=== PATIENT | female | born 1980 | race African-American/Black ===

== ENCOUNTER 2019-11-22 08:14 | Emergency (ER) | payer BC, OTHER ==
[~2019-11-22] VITALS: Ht 162.6 cm; Wt 74.4 kg
[2019-11-22] MEDS: METOCLOPRAMIDE HCL 10 MG/2 ML VIAL IV ONE (08:30)
[2019-11-22] MEDS: IV NORMAL SALINE 1000 ML BAG IV ONE (08:56)
[2019-11-22] MEDS ORDERED: METOCLOPRAMIDE HCL 10 MG/2 ML VIAL ONE (09:01)
[2019-11-22] MEDS: diphenhydrAMINE 50 MG/1 ML VIAL IV ONE (09:01)
[2019-11-22] MEDS ORDERED: diphenhydrAMINE 50 MG/1 ML VIAL ONE (09:01)
[2019-11-22] MEDS ORDERED: MECLIZINE HCL 25 MG TABLET ONE (09:01)
[2019-11-22] MEDS: MECLIZINE HCL 25 MG TABLET PO ONE (09:01)
[2019-11-22 09:03] LABS: BASOPHILS # (AUTO) 0.1 K/uL (0.0-8.0); BASOPHILS % (AUTO) 1.2 % (0.0-2.0); EOSINOPHILS # (AUTO) 0.2 K/uL (0.0-0.7); EOSINOPHILS % (AUTO) 3.7 % (0.0-7.0); HEMOGLOBIN 13.2 g/dL (10.9-14.3); MEAN CORPUSCULAR HEMOGLOBIN 27.7 uug (24.7-32.8); MEAN CORPUSCULAR HGB CONC 35 g/dL (32.3-35.6); MEAN CORPUSCULAR VOLUME 79.9 fL (75.5-95.3); MONOCYTES # (AUTO) 0.5 K/uL (2.0-10.0); MONOCYTES % (AUTO) 10.2 % (0.0-11.0); NEUTROPHILS # (AUTO) 2.1 K/uL (1.8-8.9); NEUTROPHILS % (AUTO) 42.9 % (38.5-71.5); PLATELET COUNT (AUTO) 360 K/uL (179-408); RED BLOOD CELL COUNT(AUTO) 4.76 MIL/uL (3.63-4.92); WHITE BLOOD COUNT (AUTO) 4.8 K/uL (3.8-11.8)
--- NOTE | 2019-11-22 09:13 | NUR ---
CALLED [facility] TO TRANSFER THE PT TO [facility] FOR CT. ETA 1130, TRIP NUMBER [id number]
[2019-11-22 09:16] LABS: CREATININE 0.8 mg/dL (0.6-1.3); POTASSIUM 3.8 mmol/L (3.5-5.1)
[2019-11-22 09:19] LABS: BILIRUBIN,DIRECT 0.2 mg/dL (0.0-0.2); BILIRUBIN,TOTAL 0.5 mg/dL (0.2-1.0); PHOSPHOROUS 2.9 mg/dL (2.5-4.9); TOTAL PROTEIN, SERUM 7.7 g/dL (6.4-8.2)
--- NOTE | 2019-11-22 09:59 | NUR ---
Pt resting with NAD noted at this time.
[2019-11-22 11:00] LABS: *BILIRUBIN,URIN NEGATIVE (NEGATIVE); *BLOOD, URINE NEGATIVE (NEGATIVE); *CLARITY,URINE SLIGHTLY CLOUDY (CLEAR); *COLOR,URINE YELLOW (YELLOW); *KETONES,URINE NEGATIVE (NEGATIVE); *URINE HCG, QUAL NEG (NEGATIVE); *UROBILINOGEN,URINE 0.2 E.U./dl (NORMAL); LEUKOCYTE ESTERASE ,URINE NEGATIVE (NEGATIVE); NITRITE, URINE NEGATIVE (NEGATIVE); UGLUCOSE NEGATIVE (NEGATIVE)
--- NOTE | 2019-11-22 11:26 | NUR ---
[facility] at bedside to take the pt to [facility] for ct scan
--- NOTE | 2019-11-22 11:33 | NUR ---
Pt to [facility] [place] [facility], NAD noted.
[2019-11-22 12:11] LABS: *MONOTEST NEGATIVE (NEGATIVE)
[2019-11-22 12:33] LABS: BACTERIA,URINE FEW /HPF (NONE SEEN); RBC,URINE NONE SEEN /HPF (0-3); SQUAMOUS EPITHELIAL CELL,UR FEW /HPF (NONE SEEN); WBC,URINE 0-3 /HPF (0-3)
--- NOTE | 2019-11-22 12:35 | NUR ---
PT BACK FROM [facility].
--- NOTE | 2019-11-22 13:51 | NUR ---
Pt resting with NAD noted, pending CT results.
--- NOTE | 2019-11-22 13:57 | NUR ---
IMAGES NOT SEEN ON [facility], BUT ARE AVAILABLE ON [facility]. MELVA FROM [facility] TOLD ME THAT IS LOOKING AT THE IMAGES NOW, SO PRETTY SOON WE WILL HAVE A READING.
--- NOTE | 2019-11-22 14:20 | NUR ---
IV removed. Catheter intact and site benign. Pressure and 4x4 gauze applied to site. No bleeding noted.
--- NOTE | 2019-11-22 14:25 | NUR ---
Patient discharged to home in stable condition. Written and verbal after care instructions given. Patient verbalizes understanding of instructions. Stressed follow up or return to ER for worsening s/s.
== END 2019-11-22 14:27 | disposition home or self-care (01) ==
LOC: ER 08:14
DX: R55 Syncope and collapse (principal); R42 Dizziness and giddiness
CPT/HCPCS: 36415; 70450; 71045; 80048; 80076; 81001; 83735; 84100; 84484; 84702; 84703; 85025; 86308; 86403; 87070; 87426; 93005; 96361; 96374; 99285; J1200; 70030-TC; A4663; J2765; J7030; J8597

== ENCOUNTER 2020-04-02 16:28 | Outpatient (CLI) | payer BC, OTHER ==
[2020-04-02 17:25] LABS: BASOPHILS # (AUTO) 0.1 K/uL (0.0-8.0); BASOPHILS % (AUTO) 1.3 % (0.0-2.0); EOSINOPHILS # (AUTO) 0.2 K/uL (0.0-0.7); EOSINOPHILS % (AUTO) 3.1 % (0.0-7.0); HEMATOCRIT 36.6 % (31.2-41.9); HEMOGLOBIN 12.7 g/dL (10.9-14.3); LYMPHOCYTES % (AUTO) 33.3 % (20.5-51.5); MEAN CORPUSCULAR HEMOGLOBIN 27.5 uug (24.7-32.8); MEAN CORPUSCULAR HGB CONC 35 g/dL (32.3-35.6); MEAN CORPUSCULAR VOLUME 79.2 fL (75.5-95.3); MONOCYTES # (AUTO) 0.5 K/uL (2.0-10.0); MONOCYTES % (AUTO) 8.2 % (0.0-11.0); NEUTROPHILS # (AUTO) 3.3 K/uL (1.8-8.9); NEUTROPHILS % (AUTO) 54.1 % (38.5-71.5); PLATELET COUNT (AUTO) 334 K/uL (179-408); RED BLOOD CELL COUNT(AUTO) 4.61 MIL/uL (3.63-4.92); WHITE BLOOD COUNT (AUTO) 6.1 K/uL (3.8-11.8)
[2020-04-02 17:39] LABS: BILIRUBIN,TOTAL 0.4 mg/dL (0.2-1.0); CREATININE 0.8 mg/dL (0.6-1.3); POTASSIUM 4.1 mmol/L (3.5-5.1); TOTAL PROTEIN, SERUM 7.7 g/dL (6.4-8.2)
[2020-04-02 17:47] LABS: THYROID STIMULATING HORMONE 0.317 mIU/mL (0.358-3.740)
[2020-04-02 20:09] LABS: *BILIRUBIN,URIN NEGATIVE (NEGATIVE); *BLOOD, URINE NEGATIVE (NEGATIVE); *CLARITY,URINE CLEAR (CLEAR); *COLOR,URINE YELLOW (YELLOW); *KETONES,URINE NEGATIVE (NEGATIVE); LEUKOCYTE ESTERASE ,URINE TRACE (NEGATIVE); NITRITE, URINE NEGATIVE (NEGATIVE); UGLUCOSE NEGATIVE (NEGATIVE)
[2020-04-02 21:52] LABS: BACTERIA,URINE NONE SEEN /HPF (NONE SEEN); RBC,URINE 0-3 /HPF (0-3); WBC,URINE 0-3 /HPF (0-3)
[2020-04-02 21:53] LABS: MUCUS,URINE FEW /LPF (0-FEW); SQUAMOUS EPITHELIAL CELL,UR FEW /HPF (NONE SEEN); URINE AMORPHOUS PHOSPHATES FEW /HPF
== END 2020-04-02 23:59 | disposition home or self-care (01) ==
LOC: LAB 16:28
PROVIDERS: ATTEND Legal Medicine
DX: E03.9 Hypothyroidism, unspecified (principal); D64.9 Anemia, unspecified; E55.9 Vitamin D deficiency, unspecified; Z00.00 Encounter for general adult medical examination without abnormal findings
CPT/HCPCS: 82306; 82746; 83550; 84443; 85025; 86803; 87806

== ENCOUNTER 2020-08-13 07:42 | Outpatient (CLI) | payer BC, MEDICAID, OTHER ==
[2020-08-13 08:25] LABS: *BILIRUBIN,URIN NEGATIVE (NEGATIVE); *BLOOD, URINE NEGATIVE (NEGATIVE); *CLARITY,URINE CLEAR (CLEAR); *COLOR,URINE YELLOW (YELLOW); *KETONES,URINE NEGATIVE (NEGATIVE); *UROBILINOGEN,URINE 0.2 E.U./dl (NORMAL); LEUKOCYTE ESTERASE ,URINE NEGATIVE (NEGATIVE); NITRITE, URINE NEGATIVE (NEGATIVE); PH,URINE 5.5 (5.0-8.0); UGLUCOSE NEGATIVE (NEGATIVE)
[2020-08-13 09:26] LABS: HEMATOCRIT 36.2 % (31.2-41.9); MEAN CORPUSCULAR HEMOGLOBIN 27.9 uug (24.7-32.8); MEAN CORPUSCULAR VOLUME 81.2 fL (75.5-95.3); PLATELET COUNT (AUTO) 357 K/uL (179-408)
[2020-08-13 09:38] LABS: BILIRUBIN,TOTAL 0.5 mg/dL (0.2-1.0); CREATININE 0.7 mg/dL (0.6-1.3); POTASSIUM 3.8 mmol/L (3.5-5.1); TOTAL PROTEIN, SERUM 7.3 g/dL (6.4-8.2)
== END 2020-08-13 23:59 | disposition home or self-care (01) ==
LOC: LAB 07:42
PROVIDERS: ATTEND Legal Medicine
DX: Z01.818 Encounter for other preprocedural examination (principal)
CPT/HCPCS: 36415; 85025; 85730

== ENCOUNTER 2020-08-14 06:31 | Outpatient (CLI) | payer BC, MEDICAID, OTHER | END 2020-08-14 23:59 | disposition home or self-care (01) | LOC: LAB 06:31 | PROVIDERS: ATTEND Surgery | DX: Z01.812 Encounter for preprocedural laboratory examination (principal); Z20.822 Contact with and (suspected) exposure to COVID-19; K64.9 Unspecified hemorrhoids ==

== ENCOUNTER 2020-08-16 07:39 | Day surgery (SDC) | payer BC, MEDICAID, OTHER ==
[~2020-08-16 07:39] MED LIST: CEFAZOLIN 2 G in IV DEXTROSE 5% 100 ML IV ONE
[2020-08-16] MEDS ORDERED: IBUPROFEN 800 MG TABLET PO ONE (07:40)
[2020-08-16] MEDS ORDERED: BUPIVACAINE PF 0.5% 30 ML VIAL ONE (09:47)
[2020-08-16] MEDS ORDERED: LIDOCAINE 1%-EPI 1:100,000 20 ML VIAL ONE (09:47)
[2020-08-16] MEDS ORDERED: THROMBIN (BOVINE) 5,000 UNITS VIAL ONE (09:47)
[2020-08-16] MEDS ORDERED: FENTANYL CITRATE 100 MCG/2 ML AMPUL ONE (15:22)
[2020-08-16] MEDS ORDERED: KETOROLAC TROMETHAMINE 30 MG INJ ONE (16:02)
== END 2020-08-16 17:00 | disposition home or self-care (01) ==
LOC: DS 07:39
PROVIDERS: ATTEND Surgery
DX: K64.4 Residual hemorrhoidal skin tags (principal); Z79.899 Other long term (current) drug therapy; Z98.890 Other specified postprocedural states; Z88.5 Allergy status to narcotic agent; Z88.8 Allergy status to other drugs, medicaments and biological substances; Z72.89 Other problems related to lifestyle
CPT/HCPCS: 46255; 88304; J0690; J1100; J1885 ×2; J2250; J2405; J2765; J3010 ×3; J3490 ×3; J7060; J7120; A4649; A4663